=== PATIENT | female | born 1990 | race Asian ===

== ENCOUNTER 2023-11-30 00:39 | Emergency (ER) | payer OTHER ==
[~2023-11-30] VITALS: Ht 165.1 cm; Wt 51.0 kg
[2023-11-30 00:48] VITALS: BP 114/48; PULSE 78; RESP 18; TEMP 97.8; O2SAT 98
[2023-11-30 14:29] LABS: HEPATITIS B SURFACE ANTIGEN NEGATIVE (Negative); HEPATITIS C AB NON REACTIVE (Neg) (Negative)
[2023-11-30 15:44] LABS: HEPATITIS B SURFACE ANTIGEN NEGATIVE; HEPATITIS C VIR.AB 0.02 INDEXVAL (0.00-0.80)
[2023-11-30 15:45] LABS: HEPATITIS B SURFACE AB 14.6 mIU/mL
[2023-11-30 15:46] LABS: HEPATITIS C VIR.AB < 0.02 INDEXVAL (0.00-0.80)
== END 2023-11-30 15:10 | disposition home or self-care (01) ==
LOC: ER 01:00
DX: T14.90XA Injury, unspecified, initial encounter (principal); W46.0XXA Contact with hypodermic needle, initial encounter; Y93.89 Activity, other specified; Y92.89 Other specified places as the place of occurrence of the external cause; Y99.8 Other external cause status
CPT/HCPCS: 36415; 86705; 87340; 99283